=== PATIENT | male | born 1965 | race Caucasian/White ===

== ENCOUNTER 2019-12-07 06:33 | Day surgery (SDC) | payer BC, OTHER ==
[~2019-12-07] VITALS: Ht 182.9 cm; Wt 94.1 kg
[2019-12-07] VITALS (12 sets, daily range): BP systolic 113–137; BP diastolic 69–78
[2019-12-07] MEDS ORDERED: AMLO5TAB4 PO (07:09)
[2019-12-07] MEDS ORDERED: HYDR12.55 PO (07:09)
[2019-12-07] MEDS ORDERED: LOSA100T3 PO (07:09)
[2019-12-07] MEDS ORDERED: EZET10TA6 PO (07:09)
[2019-12-07] MEDS ORDERED: ROSU40TA PO (07:09)
[2019-12-07] MEDS ORDERED: normal saline 1000ml 1,000 ML IV SCH ×2 (07:10→10:59)
[2019-12-07 07:41] LABS: BASOPHILS # (AUTO) 0.1 X10'3 (0-0.2); BASOPHILS % (AUTO) 1.4 % (0-1); EOSINOPHILS # (AUTO) 0.3 X10'3 (0-0.9); EOSINOPHILS % (AUTO) 4.7 % (0-6); HEMATOCRIT 40.8 % (42.0-52.0); HEMOGLOBIN 13.6 g/dl (14.0-17.9); LYMPHOCYTES # (AUTO) 2.2 X10'3 (1.1-4.8); LYMPHOCYTES % (AUTO) 36.7 % (21-51); MEAN CORPUSCULAR HEMOGLOBIN 28.8 PG (27.0-31.0); MEAN CORPUSCULAR HGB CONC 33.3 g/dL (33.0-36.5); MEAN CORPUSCULAR VOLUME 86.6 FL (78-98); MEAN PLATELET VOLUME 7.2 FL (7.4-10.4); MONOCYTES # (AUTO) 0.6 X10'3 (0-0.9); MONOCYTES % (AUTO) 10.1 % (2-12); NEUTROPHILS # (AUTO) 2.8 X10'3 (1.8-7.7); NEUTROPHILS % (AUTO) 47.1 % (42-75); PLATELET COUNT 230 X10'3 (140-440); RED BLOOD COUNT 4.71 X10'6 (4.70-6.10); RED CELL DISTRIBUTION WIDTH 13.4 % (11.5-14.5)
[2019-12-07 07:50] LABS: ALBUMIN 3.4 G/DL (3.4-5.0); ANION GAP 10 (8-16); BLOOD UREA NITROGEN 25 MG/DL (7-18); BUN/CREATININE RATIO 22.5 (5.4-32.0); CALCIUM 8.5 MG/DL (8.5-10.1); CHLORIDE 106 MMOL/L (99-107); CREATININE 1.11 MG/DL (0.60-1.10); GLUCOSE 101 MG/DL (70-104); POTASSIUM 3.8 MMOL/L (3.5-5.1); SODIUM 141 MMOL/L (135-145); TOTAL CARBON DIOXIDE 25.2 MMOL/L (24-32); eGFR 69 ML/MIN
[2019-12-07] MEDS ORDERED: LIDOcaine 1%/PF 5ML 10 MG/ML VIAL ONE (08:28)
[2019-12-07] MEDS ORDERED: iohexol 300mg/ml 100ml inj. ONE (08:29)
[2019-12-07] MEDS ORDERED: midazolam 2 mg/2 ml injection ONE ×3 (08:29→10:04)
[2019-12-07] MEDS ORDERED: heparin 1,000 UNITS/NS 500ml 500 ML ONE ×2 (08:29→09:40)
[2019-12-07] MEDS ORDERED: fentaNYL/PF 50MCG/1 ML 2ML syringe ONE ×2 (08:29→09:28)
[2019-12-07] MEDS ORDERED: tPA-cathflo 2 MG/2 ml IV flush ONE (09:36)
[2019-12-07] MEDS ORDERED: heparin 1,000unit/ml 10ml vial 10 ML ONE (09:50)
[2019-12-07] MEDS ORDERED: HYDROcodone/acetaminophen 10/325mg tab PO ONE (12:20)
== END 2019-12-07 15:30 | disposition home or self-care (01) ==
LOC: SSTAY O 06:33
PROVIDERS: ATTEND Radiology Vascular & Interventional Radiology
DX: I74.5 Embolism and thrombosis of iliac artery (principal); E78.01 Familial hypercholesterolemia; I10 Essential (primary) hypertension; Z79.899 Other long term (current) drug therapy
CPT/HCPCS: 36415; 37221; 80048; 85025; 85610; 99152; 99153; C1725; C1760; C1769; C1876; C1894; J1644; J2250; J2997; J3010; J7030; Q9967

== ENCOUNTER 2020-07-03 12:02 | Emergency (ER) | payer BC, OTHER ==
[~2020-07-03] VITALS: Ht 180.3 cm; Wt 93.7 kg
[~2020-07-03 12:02] MED LIST: AMLO5TAB4 PO; EZET10TA6 PO; HYDR12.55 PO; LOSA100T3 PO; ROSU40TA PO
[2020-07-03] MEDS ORDERED: TETanus/Pertussis (Acell)/Diphther VAC/PF (Tdap-Adult) 0.5ml syringe IMVAC ONE (12:25)
[2020-07-03] MEDS ORDERED: LIDOcaine 1% W/epiNEPHrine 1:200,000 10ml vial IJ ONE (12:25)
[2020-07-03] MEDS ORDERED: HYDR-3965 PO (13:46)
[2020-07-03 14:12] VITALS: BP 134/74
== END 2020-07-03 14:21 | disposition home or self-care (01) ==
LOC: ER 12:03
DX: S61.210A Laceration without foreign body of right index finger without damage to nail, initial encounter (principal); S61.212A Laceration without foreign body of right middle finger without damage to nail, initial encounter; S61.214A Laceration without foreign body of right ring finger without damage to nail, initial encounter; E78.00 Pure hypercholesterolemia, unspecified; I10 Essential (primary) hypertension; Z98.890 Other specified postprocedural states; Z79.899 Other long term (current) drug therapy; W45.8XXA Other foreign body or object entering through skin, initial encounter; Y93.89 Activity, other specified; Y92.89 Other specified places as the place of occurrence of the external cause; Y99.8 Other external cause status
CPT/HCPCS: 12002; 12042; 73120; 90471; 90715; 99283; 99284

== ENCOUNTER 2022-05-16 09:53 | Day surgery (SDC) | payer BC, OTHER ==
[2022-05-16] VITALS (16 sets, daily range): BP systolic 99–190; BP diastolic 67–143
[~2022-05-16] VITALS: Ht 180.3 cm; Wt 101.7 kg
[2022-05-16] MEDS ORDERED: glycopyrrolate 0.2mg/ml inj IV ONE (10:20)
[2022-05-16] MEDS ORDERED: MIDAZolam 1mg/ml 10ml vial IV ONE (10:20)
[2022-05-16] MEDS ORDERED: normal saline 1000ml 1,000 ML IV SCH (10:20)
[2022-05-16] MEDS ORDERED: fentaNYL/PF 50MCG/1 ML 2ML syringe IV ONE ×2 (10:20→11:05)
[2022-05-16] MEDS ORDERED: CLOP75TA34 PO (10:21)
[2022-05-16] MEDS ORDERED: MAGN200T PO (10:21)
[2022-05-16] MEDS ORDERED: UBID100C16 PO (10:21)
[2022-05-16] MEDS ORDERED: ASPI81TA52 PO (10:21)
[2022-05-16] MEDS ORDERED: CHOL50004 PO (10:21)
[2022-05-16] MEDS ORDERED: ZINC50CA2 PO (10:21)
[2022-05-16] MEDS ORDERED: OMEG-5 PO (10:21)
[2022-05-16] MEDS ORDERED: NIAC500C12 PO (10:21)
[2022-05-16 10:33] LABS: BASOPHILS # (AUTO) 0.1 X10'3 (0-0.2); BASOPHILS % (AUTO) 1.2 % (0-1); EOSINOPHILS # (AUTO) 0.3 X10'3 (0-0.9); EOSINOPHILS % (AUTO) 5.1 % (0-6); HEMOGLOBIN 14.8 g/dl (14.0-17.9); LYMPHOCYTES # (AUTO) 2.1 X10'3 (1.1-4.8); LYMPHOCYTES % (AUTO) 34.1 % (21-51); MEAN CORPUSCULAR HEMOGLOBIN 29.3 PG (27.0-31.0); MEAN CORPUSCULAR HGB CONC 33.6 g/dL (33.0-36.5); MEAN CORPUSCULAR VOLUME 87.3 FL (78-98); MEAN PLATELET VOLUME 6.8 FL (7.4-10.4); MONOCYTES # (AUTO) 0.5 X10'3 (0-0.9); MONOCYTES % (AUTO) 8.2 % (2-12); NEUTROPHILS # (AUTO) 3.1 X10'3 (1.8-7.7); NEUTROPHILS % (AUTO) 51.4 % (42-75); PLATELET COUNT 218 X10'3 (140-440); RED BLOOD COUNT 5.03 X10'6 (4.70-6.10); RED CELL DISTRIBUTION WIDTH 13.4 % (11.5-14.5)
[2022-05-16 10:42] LABS: ALBUMIN 3.5 G/DL (3.4-5.0); ANION GAP 8 (8-16); BLOOD UREA NITROGEN 20 MG/DL (7-18); BUN/CREATININE RATIO 15.2 (5.4-32.0); CALCIUM 8.9 MG/DL (8.5-10.1); CHLORIDE 104 MMOL/L (99-107); CREATININE 1.32 MG/DL (0.60-1.10); GLUCOSE 113 MG/DL (70-104); MAGNESIUM 2.1 MG/DL (1.5-2.4); POTASSIUM 4.1 MMOL/L (3.5-5.1); SODIUM 138 MMOL/L (135-145); TOTAL CARBON DIOXIDE 26.4 MMOL/L (24-32); eGFR 56 ML/MIN
== END 2022-05-16 14:15 | disposition home or self-care (01) ==
LOC: SSTAY O 09:53 → EDSTATUS 12:30 → SSTAY O 14:15
PROVIDERS: ATTEND Internal Medicine Cardiovascular Disease
DX: Q21.10 Atrial septal defect, unspecified (principal); I34.0 Nonrheumatic mitral (valve) insufficiency; I10 Essential (primary) hypertension; E78.00 Pure hypercholesterolemia, unspecified; K21.9 Gastro-esophageal reflux disease without esophagitis; Z95.828 Presence of other vascular implants and grafts; Z87.891 Personal history of nicotine dependence; Z79.82 Long term (current) use of aspirin; Z79.01 Long term (current) use of anticoagulants; Z79.899 Other long term (current) drug therapy; Z98.890 Other specified postprocedural states; Z80.1 Family history of malignant neoplasm of trachea, bronchus and lung; Z82.49 Family history of ischemic heart disease and other diseases of the circulatory system
CPT/HCPCS: 36415; 80048; 83735; 85025; 85610; 93312; 93325; J2250; J3010; J3490; J7030; A4620